=== PATIENT | male | born 1970 | race Caucasian/White ===

== ENCOUNTER 2017-03-22 20:29 | Emergency (ER) | payer OTHER ==
[~2017-03-22] VITALS: Ht 166.4 cm; Wt 100.0 kg
[2017-03-22] MEDS ORDERED: INSLAN SQ (21:10)
[2017-03-22] MEDS ORDERED: [UNRECOGNIZED DRUG - REMARK] PO (21:10)
[2017-03-22] MEDS ORDERED: INSULIN REGULAR, HUMAN 100 UNITS/ML IVP ONE (21:30)
[2017-03-22] MEDS ORDERED: SODIUM CHLORIDE 0.9% 1,000 ML IV ONE ×2 (21:30→22:15)
[2017-03-22 21:32] LABS: GLUCOSE,POINT OF CARE 544 MG/DL (70-110)
[2017-03-22 22:17] LABS: GLUCOSE,POINT OF CARE 428 MG/DL (70-110)
[2017-03-22 22:26] VITALS: BP 138/79
[2017-03-22 23:17] LABS: GLUCOSE,POINT OF CARE 257 MG/DL (70-110)
== END 2017-03-22 23:47 | disposition home or self-care (01) ==
LOC: EMS 20:32
DX: S13.4XXA Sprain of ligaments of cervical spine, initial encounter (principal); S20.212A Contusion of left front wall of thorax, initial encounter; E11.65 Type 2 diabetes mellitus with hyperglycemia; Z91.14 Patient's other noncompliance with medication regimen; Z79.4 Long term (current) use of insulin; V43.52XA Car driver injured in collision with other type car in traffic accident, initial encounter; Y93.89 Activity, other specified; Y92.89 Other specified places as the place of occurrence of the external cause; Y99.8 Other external cause status
CPT/HCPCS: 71010; 72040; 82948; 82962; 96360; 96374; 99284; J1815; J7030